=== PATIENT | male | born 1965 | race Caucasian/White ===

== ENCOUNTER 2017-01-16 22:21 | Emergency (ER) | payer OTHER ==
[~2017-01-16] VITALS: Ht 170.2 cm; Wt 79.0 kg
[2017-01-16 22:32] VITALS: Ht 170.2 cm; Wt 79.0 kg
--- NOTE | 2017-01-16 23:13 | ERD ---
ER Documentation Chief Complaint Date/Time DATE: 01/16/17 TIME: 23:12 Chief Complaint rash on general body since yesterday. Denies new food, med, detergent HPI This is a 51-year-old male rash on his body since yesterday. He says itchy. Denies any exposures. Denies any fevers or chills. Denies any other current issues. ROS All systems reviewed and are negative except as per history of present illness. Allergies Allergies: Coded Allergies: No Known Allergy (Unverified , 01/16/17) PMhx/Soc Medical and Surgical Hx: pt denies Medical Hx, pt denies Surgical Hx Hx Alcohol Use: Yes (occassionally) Hx Substance Use: No Hx Tobacco Use: No Smoking Status: Never smoker Physical Exam Vitals Vital Signs Date Time Temp Pulse Resp B/P Pulse Ox O2 Delivery O2 Flow Rate FiO2 01/16/17 22:32 97.8 85 18 140/78 98 Physical Exam Const: [] Head: Atraumatic Eyes: Normal Conjunctiva ENT: Normal External Ears, Nose and Mouth. Neck: Full range of motion..~ No meningismus. Resp: Clear to auscultation bilaterally Cardio: Regular rate and rhythm, no murmurs Abd: Soft, non tender, non distended. Normal bowel sounds Skin: Maculopapular rash involving trunk and extremities. Now weeping nonblanching non-crusting. Back: No midline or flank tenderness Ext: No cyanosis, or edema Neur: Awake and alert Psych: Normal Mood and Affect Results 24 hrs Current Medications Medications (Trade) Dose Ordered Sig/Radha Route PRN Reason Start Time Stop Time Status Last Admin Dose Admin Dexamethasone (Decadron) 10 mg ONCE ONCE IM 01/16/17 23:30 01/16/17 23:31 Diphenhydramine HCl (Benadryl) 50 mg ONCE ONCE IM 01/16/17 23:30 01/16/17 23:31 Procedures/MDM Patient's dermatologic symptoms have stabilized while they have been evaluated in the department and are appropriate for outpatient work up. No evidence of Duncan Edin's syndrome, Kawasaki's, or sepsis. Departure Diagnosis: Primary Impression: Rash Condition: Stable KAI BOONE Jan 16, 2017 23:13
[2017-01-16] MEDS ORDERED: BEN50 PO (23:14)
[2017-01-16] MEDS ORDERED: PRED20TA PO (23:14)
[2017-01-16] MEDS ORDERED: HC1C30 TOP (23:14)
[2017-01-16] MEDS ORDERED: DEXAMETHASONE 10 MG/ML 1 ML INJ IM ONE (23:30)
[2017-01-16] MEDS ORDERED: DIPHENHYDRAMINE 50 MG INJ IM ONE (23:30)
== END 2017-01-16 23:40 | disposition home or self-care (01) ==
LOC: E/R 22:21
DX: R21 Rash and other nonspecific skin eruption (principal)
CPT/HCPCS: 96372; J1100; J1200; Z7502

== ENCOUNTER 2017-09-28 09:36 | Emergency (ER) | END 2017-09-28 13:12 | disposition home or self-care (01) ==

== ENCOUNTER 2017-10-07 09:37 | Emergency (ER) | END 2017-10-07 14:18 | disposition home or self-care (01) ==